=== PATIENT | male | born 1960 | race Caucasian/White ===

== ENCOUNTER 2017-11-03 12:00 | Emergency (ER) | END 2017-11-03 19:18 | disposition home or self-care (01) ==

== ENCOUNTER 2018-04-09 21:00 | Emergency (ER) | payer MEDICAID, OTHER ==
[~2018-04-09] VITALS: Wt 78.2 kg
[~2018-04-09 21:00] MED LIST: ASPI-831 PO; ATOR20TA38 PO; CLIN300C10 PO; GLIM4TAB PO; IBUP-1542 PO; ISOS30TA67 PO; METF100010 PO; METO-448 PO; PANT40TA4 PO
[2018-04-10] MEDS ORDERED: HYDROCODONE/APAP (10/325) TAB PO ONE (02:30)
[2018-04-10] MEDS ORDERED: predniSONE 20 MG TAB PO ONE (02:30)
[2018-04-10] MEDS ORDERED: TIMO15DR16 (03:45)
[2018-04-10] MEDS ORDERED: LOSA25TA12 PO (03:45)
[2018-04-10] MEDS ORDERED: ATOR40TA68 PO (03:45)
[2018-04-10] MEDS ORDERED: LATA2.5D2 (03:45)
--- NOTE | 2018-04-10 03:58 | ERD ---
ER Documentation Chief Complaint Chief Complaint NUMBNESS TO L SIDE OF NECK/ SHOULDER X'S 2 DAYS HPI This is a 57-year-old male who states he the onset yesterday of left-sided facial weakness. He says he does have some mild tingling around his left lips. He says he cannot close his left eye or move his left face very well. Denies any hyperacusis or taste changes. He denies any headache, extremity numbness or weakness, no speech or visual change or swallowing difficulty. No rash ROS All systems reviewed and are negative except as per history of present illness. Medications Home Meds Active Scripts Ibuprofen* (Motrin*) 600 Mg Tab, 600 MG PO Q6H PRN for PAIN AND OR ELEVATED TEMP, #30 TAB Prov:GOYO GILBERT MD 11/03/17 Clindamycin Hcl* (Clindamycin Hcl*) 300 Mg Capsule, 300 MG PO TID for 10 Days, CAP Prov:GOYO GILBERT MD 11/03/17 Pantoprazole* (Pantoprazole*) 40 Mg Tablet.dr, 40 MG PO DAILY for 30 Days, TAB Prov:MEGHAN LARSEN NP 07/18/14 Isosorbide Mononitrate* (Isosorbide Mononitrate*) 30 Mg Tabsr, 30 MG PO DAILY for 30 Days Prov:MEGHAN LARSEN NP 07/18/14 Metoprolol Tartrate* (Lopressor*) 25 Mg Tab, 12.5 MG PO Q12 for 30 Days, TAB Prov:MEGHAN LARSEN NP 07/18/14 Atorvastatin Calcium* (Atorvastatin Calcium*) 20 Mg Tab, 40 MG PO HS for 30 Days Prov:MEGHAN LARSEN NP 07/18/14 Aspirin (Aspirin) 81 Mg Chew, 81 MG PO DAILY for 30 Days Prov:MEGHAN LARSEN NP 07/18/14 Reported Medications Atorvastatin* (Atorvastatin*) 40 Mg Tablet, 40 MG PO QHS, #30 TAB 04/10/18 Latanoprost (Latanoprost) 2.5 Ml Drops, DAILY for 40 Days EYE DROP TO LEFT EYE DAILY 04/10/18 Timolol Maleate* (Timolol Maleate* Ophth) 0.5%-15ml Opht, DAILY for 1 Day EYE DROPS FOR LEFT EYE DAILY 04/10/18 Losartan Potassium* (Losartan Potassium*) 25 Mg Tablet, 25 MG PO DAILY for 30 Days, #30 04/10/18 Glimepiride* (Glimepiride*) 4 Mg Tablet, 4 MG PO BID, TAB 07/15/14 Discontinued Reported Medications Metformin Hcl* (Metformin Hcl*) 1,000 Mg Tablet, 1000 MG PO BID, TAB 07/15/14 Allergies Allergies: Coded Allergies: No Known Allergy (Unverified , 11/03/17) PMhx/Soc History of Surgery: Yes (Right eye surgery 2010) Anesthesia Reaction: No Hx Neurological Disorder: No Hx Respiratory Disorders: No Hx Cardiac Disorders: Yes (Hypertension) Hx Psychiatric Problems: No Hx Miscellaneous Medical Probl: Yes (Diabetes) Hx Alcohol Use: Yes Hx Substance Use: No Hx Tobacco Use: No Smoking Status: Former smoker FmHx Family History: No coronary disease Physical Exam Vitals Vital Signs Date Temp Pulse Resp B/P (MAP) Pulse Ox O2 O2 Flow FiO2 Time Delivery Rate 04/10/18 75 15 137/93 99 Room Air 02:00 (108) 04/09/18 98.5 87 18 140/95 99 21:41 (110) Physical Exam Const: Well-developed, well-nourished Head: Atraumatic, normocephalic Eyes: Normal Conjunctiva, PERRLA, EOMI, normal sclera, no nystagmus ENT: Normal External Ears, Nose and Mouth, moist mucus membranes. Neck: Full range of motion. No meningismus, no lymphadenopathy. Resp: Clear to auscultation bilaterally, no wheezing, rhonchi, rales Cardio: Regular rate and rhythm, no murmurs, S1 S2 present Abd: Soft, non tender x 4, non distended. Normal bowel sounds, no guarding or rebound, no pulsitile abdominal masses or bruits Skin: No petechiae or rashes, no ecchymosis , no maculopapular rash Back: No midline or flank tenderness Ext: No cyanosis, or edema, FROM x 4, normal inspection, neurovascularly intact x 4 Neur: Awake and alert, STR 5/5 x 4, sensation intact x 4, left facial weakness involving the entire face including the forehead, the patient is unable to close his left eye and cannot wrinkle the left forehead, cerebellum intact Psych: Normal Mood and Affect Results 24 hrs Current Medications Medications Dose Sig/Kriss Start Time Status Last (Trade) Ordered Route PRN Stop Time Admin Dose Reason Admin Prednisone 60 mg ONCE ONCE 04/10/18 DC 04/10/18 (Prednisone) PO 02:30 02:48 04/10/18 02:31 1 tab ONCE ONCE 04/10/18 DC 04/10/18 Acetaminophen PO 02:30 02:47 / 04/10/18 02:31 Hydrocodone Bitart ([place] ()) Procedures/MDM MR #: [id number] DOS: 04/10/18 0216 Ordering MD: TRINIDAD BILLINGS DO Location: E/R Room/Bed: PROCEDURE: CT head without intravenous contrast CLINICAL INDICATION: Left facial droop. Davis's palsy. COMPARISON: None. TECHNIQUE: Axial CT images from skull base to vertex with coronal and sagittal reformats. DOSE: The estimated administered radiation dose was CTDI vol = 39.64 mGy. DLP = 634.23 mGy-cm. One or more of the following dose reduction techniques were used: automated exposure control, adjustment of the mA and/or kV according to patient size, or use of iterative reconstruction. DICOM images are available. FINDINGS: Parenchyma: No acute hemorrhage, large territorial infarction, or mass. The tellez-white matter junctions are intact. No space occupying intra-axial masses or extra-axial fluid collections are present. There is mild generalized parenchymal volume loss. There are areas of decreased attenuation involving the bilateral subcortical , periventricular regions and deep white matter consistent with mild chronic microvascular white matter ischemic disease. Ventricles: No ventriculomegaly or ventricular effacement. Extra-axial spaces: No herniation or midline shift. Paranasal sinuses: Left maxillary sinus retention cysts or polyps. Mastoids and middle ears: Clear. Visualized orbits: Normal. Vessels: [<There is no calcified atherosclerosis of the bilateral internal carotid arteries Bones: Normal. Extracranial soft tissues: Normal. Additional comment: None. IMPRESSION: 1. No acute intracranial abnormality. 2. Mild generalized parenchymal volume loss. 3. Mild chronic microvascular white matter ischemic disease. RPTAT: HRSR Roberty Redlich, Physician Date Time Electronically viewed and signed by Primo Gallo, Physician on 04/10/2018 03:14 RR/ CC: TRINIDAD BILLINGS DO [id number] Patient's presentation is consistent with Davis's palsy. Will discharge home with Valtrex and prednisone as well as gave him ophthalmologic care and warning signs Departure Diagnosis: Primary Impression: Davis's palsy Condition: Stable TIRNIDAD BILLINGS DO Apr 10, 2018 03:58
[2018-04-10] MEDS ORDERED: LACR35O LEFT EYE (04:00)
[2018-04-10] MEDS ORDERED: MED4DP PO (04:00)
[2018-04-10] MEDS ORDERED: VALA10004 PO (04:00)
[2018-04-10 04:10] VITALS: BP 131/83; PULSE 75; RESP 18
== END 2018-04-10 04:16 | disposition home or self-care (01) ==
LOC: E/R 21:00
DX: G51.0 Bell's palsy (principal); I10 Essential (primary) hypertension; E11.9 Type 2 diabetes mellitus without complications; Z79.82 Long term (current) use of aspirin; Z79.84 Long term (current) use of oral hypoglycemic drugs; Z87.891 Personal history of nicotine dependence
CPT/HCPCS: 70450; J7512; Z7502; Z7610